=== PATIENT | female | born 1970 | race Hispanic/Latino ===

== ENCOUNTER 2018-10-31 20:08 | Emergency (ER) | payer BC ==
[2018-10-31] MEDS ORDERED: SUCRALFATE 1 GM TABLET ONE (21:35)
--- NOTE | 2018-10-31 22:02 | RAD REPORT ---
EXAM DESCRIPTION: RAD - Chest Pa And Lat (2 Views) - 10/31/2018 9:35 pm CLINICAL HISTORY: Hypertension, shortness of breath COMPARISON: None. TECHNIQUE: PA and lateral views of the chest were obtained. FINDINGS: The lungs are clear. Heart size is normal and central vasculature is within normal limit s. No pleural effusion or pneumothorax seen. No acute bony finding noted. No aortic abnormality. IMPRESSION: No acute cardiopulmonary process.
[2018-10-31] MEDS ORDERED: SIMETHICONE 80 MG TAB ONE (22:43)
[2018-10-31] MEDS ORDERED: HEPARIN 5000 UNIT/ML 1 ML VIAL ONE (23:29)
[2018-10-31] MEDS ORDERED: HEPARIN/D5W 25,000 UNIT/500 ML BAG IV ONE (23:30)
--- NOTE | 2018-11-01 00:11 | ER ---
Nurse's Notes [facility] Name: Cailin Aguiar Age: 48 yrs Sex: Female : 1970 Arrival Date: 10/31/2018 Time: 20:10 Bed 15 Private MD: Diagnosis: Epigastric pain Presentation: 10/31 20:30 Presenting complaint: Patient states: that yesterday she noticed that she was having fc problems with her blood pressure. At home today she was 168/100. She is also having epigastric fullness. Denies any pain just feels as if her food will not digest. Transition of care: patient was not received from another setting of care. Onset of symptoms was October 30, 2018. Risk Assessment: Do you want to hurt yourself or someone else? Patient reports no desire to harm self or others. Initial Sepsis Screen: Does the patient meet any 2 criteria? No. Patient's initial sepsis screen is negative. Does the patient have a suspected source of infection? No. Patient's initial sepsis screen is negative. Care prior to arrival: None. 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 LMP N/A - Post-menopause fc Historical: - Allergies: 20:35 No Known Allergies; fc - Home Meds: 20:35 nitroglycerin 0.4 mg SL subl 1 tab every 5 minutes [Active]; paroxetine HCl 10 mg oral fc tab 1 tab once daily [Active]; metoprolol tartrate 100 mg Oral tab 1 tab in am and 1/2 tab at night [Active]; omeprazole 40 mg Oral cpDR 1 cap once daily [Active]; furosemide 40 mg Oral tab 1 tab once daily [Active]; lisinopril-hydrochlorothiazide 20-12.5 mg oral tab 1 tab once daily [Active]; atorvastatin 40 mg oral tab 1 tab once daily [Active]; aspirin 81 mg Oral TbEC 1 tab once daily [Active]; levothyroxine 100 mcg tab 1 tab once daily [Active]; - PMHx: 20:35 Hypertension; only one kidney; Angina; Hypothyroidism; High Cholesterol; GERD; fc - PSHx: 20:35 ; fc - Immunization history:: Last tetanus immunization: unknown, Flu vaccine is not up to date. - Social history:: Smoking status: Patient/guardian denies using tobacco, Patient/guardian denies using alcohol. - Ebola Screening: : Patient negative for fever greater than or equal to 101.5 degrees Fahrenheit, and additional compatible Ebola Virus Disease symptoms Patient denies exposure to infectious person Patient denies travel to an Ebola-affected area in the 21 days before illness onset. Screenin:42 Abuse screen: Denies threats or abuse. Denies injuries from another. Nutritional mg2 screening: No deficits noted. Tuberculosis screening: No symptoms or risk factors identified. Fall Risk None identified. Assessment: 20:50 General: Appears in no apparent distress. comfortable, Behavior is calm, cooperative. mg2 Pain: Complains of pain in left shoulder Pain does not radiate. Pain currently is 1 out of 10 on a pain scale. Quality of pain is described as aching, Pain began gradually, 3 hours ago. Is intermittent. Neuro: Level of Consciousness is awake, alert, obeys commands, Oriented to person, place, time, situation. Cardiovascular: Capillary refill < 3 seconds Patient's skin is warm and dry. Respiratory: Airway is patent Respiratory effort is even, unlabored, Respiratory pattern is regular, symmetrical. GI: Reports gastric fullness. : No signs and/or symptoms were reported regarding the genitourinary system. EENT: No signs and/or symptoms were reported regarding the EENT system. Derm: Skin is intact, is healthy with good turgor, Skin is pink, warm \T\ dry. normal. Musculoskeletal: Reports pain in left shoulder. 22:55 Reassessment: Patient appears in no apparent distress at this time. Patient and/or mg2 family updated on plan of care and expected duration. Pain level reassessed. Patient is alert, oriented x 3, equal unlabored respirations, skin warm/dry/pink. 11/01 00:57 Reassessment: Patient appears in no apparent distress at this time. Patient and/or mg2 family updated on plan of care and expected duration. Pain level reassessed. Patient is alert, oriented x 3, equal unlabored respirations, skin warm/dry/pink. Vital Signs: 10/31 20:27 BP 174 / 86; Pulse 68; Resp 18; Temp 99.1(O); Pulse Ox 100% on R/A; Weight 68.04 kg fc (R); Height 4 ft. 11 in. (149.86 cm) (R); Pain 1/10; 20:51 BP 142 / 64; Pulse 62; Resp 16; Pulse Ox 99% on R/A; mt 20:52 BP 142 / 64; Pulse 70; Resp 18; Pulse Ox 100% on R/A; Pain 1/10; mg2 22:54 BP 136 / 65; Pulse 59; Resp 18; Pulse Ox 100% on R/A; Pain 0/10; mg2 11/01 00:57 BP 114 / 65; Pulse 65; Resp 18; Pulse Ox 100% on R/A; Pain 0/10; mg2 10/31 20:27 Body Mass Index 30.30 (68.04 kg, 149.86 cm) fc ED Course: 10/31 20:10 Patient arrived in ED. mr 20:27 Arm band placed on Patient placed in waiting room. fc 20:31 Triage completed. fc 20:41 Ashutosh Erazo, PRIMITIVO is Primary Nurse. mg2 20:43 Patient has correct armband on for positive identification. mg2 20:52 No provider procedures requiring assistance completed. mg2 21:02 Adrienne Andersen FNP-C is PHCP. snw 21:02 Franki Walton MD is Attending Physician. snw 21:35 Chest Pa And Lat (2 Views) XRAY In Process Unspecified. EDMS 11/01 00:57 Patient did not have IV access during this emergency room visit. mg2 Administered Medications: 10/31 21:46 Drug: CarafATE 1 grams Route: PO; mg2 11/01 00:56 Follow up: Response: No adverse reaction; Marked relief of symptoms mg2 10/31 22:50 Drug: Simethicone 120 mg Route: PO; mg2 11/01 00:56 Follow up: Response: No adverse reaction; Marked relief of symptoms mg2 Outcome: 00:10 Discharge ordered by . snw 00:58 Patient left the ED. mg2 Signatures: Dispatcher [employer] EDMI Adrienne Andersen FNP-C FNP-Bubba Vandana Husain Amber Sanders, PRIMITIVO LANGFORD Zaria Sanderson nd Ashutosh Erazo RN RN mg2 Corrections: (The following items were deleted from the chart) 00:58 00:57 IV discontinued, intact, bleeding controlled, No redness/swelling at site. mg2 Pressure dressing applied, mg2
--- NOTE | 2018-11-01 00:11 | EDPHYS ---
Physician Documentation [facility] Name: Cailin Aguiar Age: 48 yrs Sex: Female : 1970 Arrival Date: 10/31/2018 Time: 20:10 Bed 15 Private MD: Franki Tapia HPI: 10/31 22:11 This 48 yrs old Female presents to ER via Ambulatory with complaints of High snw Blood Pressure. 22:11 The patient has elevated blood pressure and discovered this at a drugstore, at home. snw Onset: The symptoms/episode began/occurred suddenly. Associated signs and symptoms: Pertinent positives: feels like food didn't go all the way down s/p eating a hamburger at [employer], Pertinent negatives: chest pain, dizziness, dyspnea, headache, lightheadedness, nausea. Severity of symptoms: At its worst the blood pressure was 200 mm Hg. It is unknown whether or not the patient has had similar symptoms in the past. The patient has been recently seen by a physician:. Pt takes Lisinopril and Metoprolol. 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 LMP N/A - Post-menopause fc Historical: - Allergies: 20:35 No Known Allergies; fc - Home Meds: 20:35 nitroglycerin 0.4 mg SL subl 1 tab every 5 minutes [Active]; paroxetine HCl 10 mg oral fc tab 1 tab once daily [Active]; metoprolol tartrate 100 mg Oral tab 1 tab in am and 1/2 tab at night [Active]; omeprazole 40 mg Oral cpDR 1 cap once daily [Active]; furosemide 40 mg Oral tab 1 tab once daily [Active]; lisinopril-hydrochlorothiazide 20-12.5 mg oral tab 1 tab once daily [Active]; atorvastatin 40 mg oral tab 1 tab once daily [Active]; aspirin 81 mg Oral TbEC 1 tab once daily [Active]; levothyroxine 100 mcg tab 1 tab once daily [Active]; - PMHx: 20:35 Hypertension; only one kidney; Angina; Hypothyroidism; High Cholesterol; GERD; fc - PSHx: 20:35 ; fc - Immunization history:: Last tetanus immunization: unknown, Flu vaccine is not up to date. - Social history:: Smoking status: Patient/guardian denies using tobacco, Patient/guardian denies using alcohol. - Ebola Screening: : Patient negative for fever greater than or equal to 101.5 degrees Fahrenheit, and additional compatible Ebola Virus Disease symptoms Patient denies exposure to infectious person Patient denies travel to an Ebola-affected area in the 21 days before illness onset. ROS: 22:11 Constitutional: Negative for fever, chills, and weight loss, Eyes: Negative for injury, snw pain, redness, and discharge, ENT: Negative for injury, pain, and discharge, Neck: Negative for injury, pain, and swelling, Cardiovascular: Negative for chest pain, palpitations, and edema, Respiratory: Negative for shortness of breath, cough, wheezing, and pleuritic chest pain, Back: Negative for injury and pain, : Negative for injury, bleeding, discharge, and swelling, MS/Extremity: Negative for injury and deformity, Skin: Negative for injury, rash, and discoloration, Neuro: Negative for headache, weakness, numbness, tingling, and seizure. 22:11 Abdomen/GI: Positive for feel as if food didn't go all the way down. Exam: 22:11 Constitutional: This is a well developed, well nourished patient who is awake, alert, snw and in no acute distress. Head/Face: Normocephalic, atraumatic. Eyes: Pupils equal round and reactive to light, extra-ocular motions intact. Lids and lashes normal. Conjunctiva and sclera are non-icteric and not injected. Cornea within normal limits. Periorbital areas with no swelling, redness, or edema. ENT: Nares patent. No nasal discharge, no septal abnormalities noted. Tympanic membranes are normal and external auditory canals are clear. Oropharynx with no redness, swelling, or masses, exudates, or evidence of obstruction, uvula midline. Mucous membranes moist. Neck: Trachea midline, no thyromegaly or masses palpated, and no cervical lymphadenopathy. Supple, full range of motion without nuchal rigidity, or vertebral point tenderness. No Meningismus. Chest/axilla: Normal chest wall appearance and motion. Nontender with no deformity. No lesions are appreciated. Cardiovascular: Regular rate and rhythm with a normal S1 and S2. No gallops, murmurs, or rubs. Normal PMI, no JVD. No pulse deficits. Respiratory: Lungs have equal breath sounds bilaterally, clear to auscultation and percussion. No rales, rhonchi or wheezes noted. No increased work of breathing, no retractions or nasal flaring. Abdomen/GI: Soft, non-tender, with normal bowel sounds. No distension or tympany. No guarding or rebound. No evidence of tenderness throughout. Back: No spinal tenderness. No costovertebral tenderness. Full range of motion. Skin: Warm, dry with normal turgor. Normal color with no rashes, no lesions, and no evidence of cellulitis. MS/ Extremity: Pulses equal, no cyanosis. Neurovascular intact. Full, normal range of motion. Neuro: Awake and alert, GCS 15, oriented to person, place, time, and situation. Cranial nerves II-XII grossly intact. Motor strength 5/5 in all extremities. Sensory grossly intact. Cerebellar exam normal. Normal gait. Psych: Awake, alert, with orientation to person, place and time. Behavior, mood, and affect are within normal limits. Vital Signs: 20:27 BP 174 / 86; Pulse 68; Resp 18; Temp 99.1(O); Pulse Ox 100% on R/A; Weight 68.04 kg fc (R); Height 4 ft. 11 in. (149.86 cm) (R); Pain 1/10; 20:51 BP 142 / 64; Pulse 62; Resp 16; Pulse Ox 99% on R/A; mt 20:52 BP 142 / 64; Pulse 70; Resp 18; Pulse Ox 100% on R/A; Pain 1/10; mg2 22:54 BP 136 / 65; Pulse 59; Resp 18; Pulse Ox 100% on R/A; Pain 0/10; mg2 11/01 00:57 BP 114 / 65; Pulse 65; Resp 18; Pulse Ox 100% on R/A; Pain 0/10; mg2 10/31 20:27 Body Mass Index 30.30 (68.04 kg, 149.86 cm) [facility]: 10/31 21:10 Patient medically screened. [facility] 11/01 00:10 Data reviewed: vital signs, nurses notes. Data interpreted: Pulse oximetry: on room air snw is 100 %. Counseling: I had a detailed discussion with the patient and/or guardian regarding: the historical points, exam findings, and any diagnostic results supporting the discharge/admit diagnosis, radiology results, the need for outpatient follow up, to return to the emergency department if symptoms worsen or persist or if there are any questions or concerns that arise at home. Special discussion: Based on the history and exam findings, there is no indication for further emergent testing or inpatient evaluation. I discussed with the patient/guardian the need to see the primary care provider for further evaluation of the symptoms. 10/31 21:19 Order name: Chest Pa And Lat (2 Views) XRAY; Complete Time: 22:04 snw 10/31 21:19 Order name: EKG; Complete Time: 21:19 snw 10/31 21:19 Order name: EKG - Nurse/Tech; Complete Time: 21:21 snw Administered Medications: 10/31 21:46 Drug: CarafATE 1 grams Route: PO; mg2 11/01 00:56 Follow up: Response: No adverse reaction; Marked relief of symptoms mg2 10/31 22:50 Drug: Simethicone 120 mg Route: PO; mg2 11/01 00:56 Follow up: Response: No adverse reaction; Marked relief of symptoms mg2 Disposition: 07:14 Co-signature as Attending Physician, Franki Walton MD I agree with the assessment and judi plan of care. Disposition: 11/01/18 00:10 Discharged to Home. Impression: Epigastric pain. - Condition is Stable. - Discharge Instructions: Upper Endoscopy, [place] Diet. - Prescriptions for Nexium 20 mg Oral Capsule - take 1 capsule by ORAL route once daily; 20 capsule. - Medication Reconciliation Form, Thank You Letter, Antibiotic Education, Prescription Opioid Use form. - Follow up: Private Physician; When: 2 - 3 days; Reason: Recheck today's complaints, Continuance of care, Re-evaluation by your physician. Follow up: Emergency Department; When: As needed; Reason: Worsening of condition. - Problem is new. - Symptoms are resolved. Signatures: Dispatcher [employer] Franki Harris MD MD cha Therrien, Shelly, TAXI DANCER-C TAXI DANCER-Csnw Amber Sanders RN RN Ashutosh Erazo RN RN mg2 Corrections: (The following items were deleted from the chart) 00:58 00:10 11/01/2018 00:10 Discharged to Home. Impression: Epigastric pain. Condition is mg2 Stable. Forms are Medication Reconciliation Form, Thank You Letter, Antibiotic Education, Prescription Opioid Use. Follow up: Private Physician; When: 2 - 3 days; Reason: Recheck today's complaints, Continuance of care, Re-evaluation by your physician. Follow up: Emergency Department; When: As needed; Reason: Worsening of condition. Problem is new. Symptoms are resolved. snw
--- NOTE | 2018-11-01 06:59 | EKG ---
Test Date: 2018-10-31 Test Time: 20:39:25 Flat Finisher: JAGDISH MEASUREMENT RESULTS: Intervals: Rate: 61 MO: 170 QRSD: 80 QT: 432 QTc: 434 [place]: P: 67 MO: 170 QRS: 65 T: 73 INTERPRETIVE STATEMENTS: Sinus rhythm with occasional premature ventricular complexes Otherwise normal ECG No previous ECG available for comparison Electronically Signed On 11-01-18 06:58:59 FUR MIXER OPERATOR by Paulino Joseph
== END 2018-11-01 00:58 | disposition home or self-care (01) ==
LOC: ER 20:08
DX: R10.13 Epigastric pain (principal); I10 Essential (primary) hypertension; E78.00 Pure hypercholesterolemia, unspecified; E03.9 Hypothyroidism, unspecified; Z79.82 Long term (current) use of aspirin
CPT/HCPCS: 71046; 93005; 99283; J1644